=== PATIENT | female | born 1955 | race Caucasian/White ===

== ENCOUNTER 2020-05-27 07:53 | Inpatient (IN) | payer OTHER ==
[~2020-05-27] VITALS: Ht 162.6 cm; Wt 81.6 kg
[~2020-05-27 07:53] MED LIST: CELEXA40 MG PO; FLONASE 0.05%50 MCG NASAL; IBUPROFEN 800800 MG PO; LISINOPRIL20 MG PO; NORCO 5-325 TA1 EACH PO; SINGULAIR 10 MG10 M1 PO; SYNTHROID150 MCG PO; TAMSULOSIN HCL0.4 M1 PO; ZOFRAN 4 MG ORAL4 MG PO; ZYRTEC 10 MG TA10 MG PO
[2020-05-27 07:58] VITALS: BP 179/105
[2020-05-27] MEDS ORDERED: CLEOCIN HCL300 MG PO (08:02)
[2020-05-27 08:40] LABS: ABSOLUTE BASOPHILS 0.1 thou/uL (0.0-0.2); ABSOLUTE EOSINOPHILS 0.3 thou/uL (0.0-0.7); ABSOLUTE MONOCYTES 1.3 thou/uL (0.0-1.2); ABSOLUTE NEUTROPHILS 6.9 thou/uL (1.6-8.1); BASOPHILS 0.7 %; EOSINOPHILS 2.7 %; HEMATOCRIT 36.2 % (37.0-47.0); HEMOGLOBIN 12.2 gm/dL (12.0-15.0); LYMPHOCYTES 19.2 %; MCH 27.5 pg (26.0-34.0); MCHC 33.7 g/dL (28.0-37.0); MCV 81.5 fL (80.0-100.0); MONOCYTES 11.9 %; MPV 7.6 fl. (7.2-11.1); NUCLEATED RBCS 0 /100WBC; PLATELET COUNT* 237 thou/uL (150-400); POLYS 65.5 %; RBC 4.44 mil/uL (4.20-5.00); RDW-CV 15.3 % (10.5-14.5); WBC 10.6 thou/uL (4.0-11.0)
[2020-05-27 08:50] LABS: CALCIUM 8.1 mg/dL (8.5-10.1); CREATININE 0.9 mg/dL (0.6-1.3); POTASSIUM 3.9 mmol/L (3.5-5.1)
[2020-05-27 09:00] LABS: TOTAL BILIRUBIN 0.3 mg/dL (<0.1-1.0); TOTAL PROTEIN 6.7 g/dL (6.4-8.2)
[2020-05-27 12:46] VITALS: BP 160/78
[2020-05-27 19:50] VITALS: BP 179/96
[2020-05-28 04:59] LABS: HEMATOCRIT 39.1 % (37.0-47.0); HEMOGLOBIN 13.1 gm/dL (12.0-15.0); MCH 27.5 pg (26.0-34.0); MCHC 33.4 g/dL (28.0-37.0); MCV 82.3 fL (80.0-100.0); MPV 7.3 fl. (7.2-11.1); NUCLEATED RBCS 0 /100WBC; PLATELET COUNT* 245 thou/uL (150-400); RBC 4.75 mil/uL (4.20-5.00); RDW-CV 15.5 % (10.5-14.5); WBC 9.4 thou/uL (4.0-11.0)
[2020-05-28 05:22] LABS: POTASSIUM 4.3 mmol/L (3.5-5.1)
[2020-05-28 05:31] LABS: CALCIUM 8.6 mg/dL (8.5-10.1)
[2020-05-28 08:30] VITALS: BP 133/70
[2020-05-28 08:54] LABS: ABSOLUTE BASOPHILS 0.1 thou/uL (0.0-0.2); ABSOLUTE NEUTROPHILS 8.3 thou/uL (1.6-8.1); PLATELET ESTIMATE ADEQUATE
[2020-05-28 11:57] VITALS: BP 152/83
[2020-05-28 16:00] VITALS: BP 132/89
[2020-05-28 16:16] VITALS: BP 146/83
[2020-05-28 19:50] VITALS: BP 150/83
[2020-05-29 09:30] VITALS: BP 144/79
[2020-05-29 20:18] VITALS: BP 144/78
[2020-05-30 09:00] VITALS: BP 139/66
[2020-05-30 17:29] VITALS: BP 164/94
[2020-05-30 20:02] VITALS: BP 155/69
[2020-05-31 04:37] LABS: ABSOLUTE BASOPHILS 0.1 thou/uL (0.0-0.2); ABSOLUTE LYMPHOCYTES 1.6 thou/uL (0.8-5.3); BASOPHILS 0.4 %; HEMATOCRIT 36.6 % (37.0-47.0); HEMOGLOBIN 12.1 gm/dL (12.0-15.0); LYMPHOCYTES 10.8 %; MCH 27.2 pg (26.0-34.0); MCHC 33.1 g/dL (28.0-37.0); MCV 82.2 fL (80.0-100.0); MPV 8.1 fl. (7.2-11.1); NUCLEATED RBCS 0 /100WBC; PLATELET COUNT* 302 thou/uL (150-400); POLYS 81.8 %; RBC 4.45 mil/uL (4.20-5.00); RDW-CV 15.1 % (10.5-14.5); WBC 14.7 thou/uL (4.0-11.0)
[2020-05-31 05:02] LABS: CALCIUM 8.1 mg/dL (8.5-10.1); POTASSIUM 4.4 mmol/L (3.5-5.1)
[2020-05-31 08:00] VITALS: BP 148/78
[2020-05-31] MEDS ORDERED: CLEOCIN HCL300 MG PO (08:18)
[2020-05-31] MEDS ORDERED: PROTONIX40 M4 PO (08:21)
[2020-05-31] MEDS ORDERED: DEXAMETHASONE 22 M1 PO (08:21)
[2020-05-31 11:22] VITALS: BP 148/78
== END 2020-05-31 13:35 | disposition home or self-care (01) | DRG 178 ==
LOC: M.ERS 07:53 → M.2W 10:04 → M.TBA-ER 10:04 → M.2W 12:40
PROVIDERS: Personal Emergency Response Attendant; ADMIT Internal Medicine; ATTEND Internal Medicine
DX: U07.1 COVID-19 (principal); L03.211 Cellulitis of face; R65.10 Systemic inflammatory response syndrome (SIRS) of non-infectious origin without acute organ dysfunction; E03.9 Hypothyroidism, unspecified; K21.9 Gastro-esophageal reflux disease without esophagitis; F41.9 Anxiety disorder, unspecified; I10 Essential (primary) hypertension; E78.00 Pure hypercholesterolemia, unspecified; Z90.710 Acquired absence of both cervix and uterus; Z90.49 Acquired absence of other specified parts of digestive tract; Z79.899 Other long term (current) drug therapy